=== PATIENT | male | born 1970 | race Caucasian/White ===

== ENCOUNTER 2020-08-15 19:17 | Emergency (ER) | payer BC, OTHER ==
[~2020-08-15] VITALS: Ht 180.3 cm; Wt 158.8 kg
== END 2020-08-15 23:38 | disposition home or self-care (01) ==
LOC: ED 19:17
DX: S52.591A Other fractures of lower end of right radius, initial encounter for closed fracture (principal); I10 Essential (primary) hypertension; W18.39XA Other fall on same level, initial encounter; Y93.89 Activity, other specified; Y92.89 Other specified places as the place of occurrence of the external cause; Y99.8 Other external cause status